=== PATIENT | male | born 1955 | race Caucasian/White ===

== ENCOUNTER 2018-10-26 09:16 | Emergency (ER) | payer OTHER ==
[2018-10-26 09:25] VITALS: BP 133/80
--- NOTE | 2018-10-26 09:50 | UC ---
Respiratory Complaint HPI - HPI Summary HPI Summary: Patient CC: 7 days sore throat, congestion, cough. Tired, achey. Post nasal drip; sinus pressure. MD: JAKE; 133/80; afebrile 97.9; p ox: 98 Nurse note: Pt states that he has had nasal congestion, cough, fatigue, intermittent sore throat and sore ears x 1 week - History of Current Complaint Chief Complaint: UCGeneralIllness Stated Complaint: COLD SYMPTOMS Time Seen by Provider: 10/26/18 09:37 Pain Intensity: 0 - Allergies/Home Medications Allergies/Adverse Reactions: Allergies Allergy/AdvReac Type Severity Reaction Status Date / Time opiods AdvReac Nausea And Uncoded 10/26/18 09:26 Vomiting Home Medications: Home Medications Multivitamin [Multivitamins] 1 cap PO DAILY 10/26/18 [History Confirmed 10/26/18 ] PMH/Surg Hx/FS Hx/Imm Hx - Additional Past Medical History Additional PMH: PMH: mild HTN; hay fever; Family hx: cancer; HTN Social: professor, brent Previously Healthy: Yes - Surgical History Surgical History: Yes Surgery Procedure, Year, and Place: wisdom teeth - Social History Alcohol Use: Daily Alcohol Amount: 1-2/DAY Substance Use Type: None Smoking Status (MU): Never Smoked Tobacco Review of Systems All Other Systems Reviewed And Are Negative: Yes Constitutional: Positive: Fever - subjective fever Skin: Positive: Negative Eyes: Positive: Negative ENT: Positive: Negative Respiratory: Positive: Shortness Of Breath - mild, Cough - non productive Cardiovascular: Positive: Negative Gastrointestinal: Positive: Negative Genitourinary: Positive: Negative Motor: Positive: Negative Neurovascular: Positive: Negative Musculoskeletal: Positive: Negative Neurological: Positive: Negative Psychological: Positive: Negative Is Patient Immunocompromised?: No Physical Exam Triage Information Reviewed: Yes Appearance: Pain Distress - mild; running nose Vital Signs: Initial Vital Signs Temp 97.9 F 10/26/18 09:22 Pulse 75 10/26/18 09:22 Resp 16 10/26/18 09:22 BP 133/80 10/26/18 09:22 Pulse Ox 98 10/26/18 09:22 Vital Signs Reviewed: Yes Eye Exam: Normal ENT Exam: Normal ENT: Positive: Normal ENT inspection Dental Exam: Normal Neck exam: Normal Neck: Positive: Supple Respiratory Exam: Normal Respiratory: Positive: Chest non-tender, No respiratory distress, No accessory muscle use, Rhonchi Cardiovascular Exam: Normal Cardiovascular: Positive: RRR, No Murmur Abdominal Exam: Normal Abdomen Description: Positive: Nontender, No Organomegaly Musculoskeletal Exam: Normal Neurological Exam: Normal Psychological Exam: Normal Skin Exam: Normal UC Diagnostic Evaluation - Laboratory O2 Sat by Pulse Oximetry: 98 Respiratory Course/Dx - Course Course Of Treatment: 63 y/o male with URI symptoms, congestion, sinus discomfort , fatigue, cough. Has felt warm. In CCC, afebrile, mild HTN; full sinuses; post nasal drip; cough; no evidence of pneumonia or bronchospasm. Discussed patient's frustration with his condition. Probably sinus congestion. ? infection. Will start on doxycycline, twice a day for 7 days. Will follow up as needed. HYPERTENSION: NOTED AND DISCUSSED. Patient is urgent/emergent and uncomfortable. Patient will follow up. MEDICATIONS: REVIEWED. - Differential Dx/Diagnosis Differential Diagnosis/HQI/PQRI: Asthma, Bronchitis, Lower Resp Infection, Sinusitis Provider Diagnosis: Sinusitis Discharge - Sign-Out/Discharge Documenting (check all that apply): Patient Departure All imaging exams completed and their final reports reviewed: No Studies - Discharge Plan Condition: Stable Disposition: HOME Prescriptions: DOXYcycline CAP(*) [DOXYcycline 100MG CAP(*)] 100 mg PO BID #14 cap MDD 2 Patient Education Materials: Rhinosinusitis (ED) Referrals: Tarsha Hartmann MD [Primary Care Provider] - Additional Instructions: WE DISCUSSED: You have a sinus infection; this should be getting better in the next 7-10 days. PLEASE SEEK CARE AT THE EMERGENCY DEPARTMENT IF SYMPTOMS WORSEN OR IF NEW SYMPTOMS DEVELOP. FOLLOW UP WITH YOUR PRIMARY CARE PHYSICIAN IF CONDITION CONTINUES BEYOND 3 DAYS WITHOUT IMPROVEMENT. YOUR DIAGNOSIS IS: SINUSITIS YOUR PRESCRIPTION RECOMMENDATION IS: Doxycyline 100 mg, twice a day for 7 days OTHER INSTRUCTIONS: Hypertension Discharge Instructions: Your blood pressure reading today was 130/80 slightly elevated. ,Follow-up with your primary care provider within 4 weeks for blood pressure check and appropriate recommendations and treatment, as needed. FOR PAIN AND/OR SLEEP: For pain: Ibuprofen (Motrin and other brand names) 400-600mg PLUS acetaminophen (Tylenol and other brand names) 500mg - 1000mg every 8 hours. Maximum is 3 doses a day. If this dosage is required for more than 5 days, you should re-check with your doctor. The combination of these two over-the- counter medications can be more effective than each one taken alone. Please check with the pharmacist if you have questions about your allergies to these medications. To help you sleep: If you feel as if you want to calm down and get sleepy, over the counter diphenhydramine (Benadryl and other brand names), 25 mg up to every 8 hours may be useful. Please check with the pharmacist if you have questions about your allergies to these medications. Lots of tea an honey; hydrate more; rest; steam; vaporizer; hot showers. - Billing Disposition and Condition Condition: STABLE Disposition: Home
[2018-10-26] MEDS ORDERED: Acetaminophen TAB* 325 MG PO ONE (09:58)
== END 2018-10-26 10:10 | disposition home or self-care (01) ==
LOC: UCEAST 09:16
DX: J32.9 Chronic sinusitis, unspecified (principal); J02.9 Acute pharyngitis, unspecified; Z88.6 Allergy status to analgesic agent
CPT/HCPCS: 99212; A9270-GY; G0463